=== PATIENT | female | born 1950 | race Caucasian/White ===

== ENCOUNTER → 2018-04-23 11:44 | Outpatient (CLI) | payer MEDICARE, OTHER, SELFPAY ==
--- NOTE | 2018-04-23 | DI.MG.S_ITS ---
BILATERAL DIGITAL SCREENING MAMMOGRAM 3D/2D WITH CAD: 04/23/2018 CLINICAL: Routine screening. Comparison is made to exams dated: 04/09/2017 mammogram, 10/10/2016 mammogram, and 09/23/2016 mammogram - [facility]. The tissue of both breasts is heterogeneously dense. This may lower the sensitivity of mammography. Current study was also evaluated with a Computer Aided Detection (CAD) system. No significant masses, calcifications, or other findings are seen in either breast. There has been no significant interval change. IMPRESSION: NEGATIVE There is no mammographic evidence of malignancy. A 1 year screening mammogram is recommended. This exam was interpreted at Station ID: [id number]. NOTE: For mammograms, a report in lay terms will be sent to the patient. Approximately 15% of breast malignancies will not be visualized mammographically. In the management of a palpable breast mass, a negative mammogram must not discourage biopsy of a clinically suspicious lesion. Electronically Signed By: Catalino trejo/cara:04/23/2018 15:45:14 letter sent: Normal Exam ACR BI-RADS Category 1: Negative 3341F
== END ==
PROVIDERS: Family Provider Specialist; PCP Specialist; Visit Provider Specialist
DX: Z12.31 Encounter for screening mammogram for malignant neoplasm of breast (principal)
CPT/HCPCS: 77063; 77067

== ENCOUNTER → 2018-04-28 12:48 | Outpatient (CLI) | payer MEDICARE, OTHER, SELFPAY ==
--- NOTE | 2018-04-28 | DI.ECHO.S_ITS ---
[place] +---------+ Hospital +---------+ : : [address] : : : : [id number] : : : : Phone: [phone]---------+ Echocardiogram Report + + :Name: YIMI DEMPSEY Study Date: 04/28/2018 Height: 67 in : :[facility] Weight: 113 lb : : Gender: Female BSA: 1.6 m2 : :: 1950 Age: 67 yrs BP: 146/76 mmHg: :Reason For Study: Conduction Disorder, LBBB : :Ordering Physician: Anna : :Roxanne Performed By: Amy Stanton : + + Interpretation Summary The left ventricle is normal in size. Left ventricular systolic function is mild to moderately reduced. The ejection fraction is estimated to be 40-45%. Compared to the prior exam, left ventricular function is moderately improved. There is global hypokinesis with paradoxical septal wall motion consistent with post-operative state/BBB. The right ventricle is normal in size and function. The right ventricular systolic pressure is estimated at 22 mmHg assuming a right atrial pressure of 3 mm Hg. The left atrium is severely dilated. Right atrial size is normal. 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 The prosthetic mitral valve is not well visualized. 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 Cannot assess the presence or severity of regurgitation due to shielding from the prosthesis. There is mild to moderate aortic regurgitation. Compared to the prior echo study, there has been an increase in the severity of aortic regurgitation. There is no other significant valvular heart disease. The aortic root is normal size. Procedure: A two-dimensional transthoracic echocardiogram with color flow and Doppler was performed. The study quality was technically adequate. Comparison is made with the echocardiogram of 08/03/2013. The patient was in normal sinus rhythm during the exam. The patient had a bundle branch block rhythm during the exam. Left Ventricle: The left ventricle is normal in size. There is normal left ventricular wall thickness. Left ventricular systolic function is mild to moderately reduced. The ejection fraction is estimated to be 40-45%. Compared to the prior exam, left ventricular function is moderately improved. Diastolic function could not be accurately assessed due to confounding valvular disease. Right Ventricle: The right ventricle is normal in size and function. Atria: The left atrium is severely dilated. Right atrial size is normal. There is no Doppler evidence for an interatrial shunt. 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 The prosthetic mitral valve is not well visualized. 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 Cannot assess the presence or severity of regurgitation due to shielding from the prosthesis. Aortic Valve: The aortic valve is trileaflet. The aortic valve opens well. There is mild to moderate aortic regurgitation. Compared to the prior echo study, there has been an increase in the severity of aortic regurgitation. Tricuspid Valve: The tricuspid valve is normal in structure and function. There is trace tricuspid regurgitation. The right ventricular systolic pressure is estimated at 22 mmHg assuming a right atrial pressure of 3 mm Hg. Pulmonic Valve: The pulmonic valve is not well seen, but is grossly normal. There is a trace or physiologic amount of pulmonic regurgitation. There is no other significant valvular heart disease. Great Vessels: The aortic root is normal size. The ascending aorta is normal in size. The aortic arch is normal in size. The IVC is of normal diameter and collapses greater than 50% with a sniff. This suggests a low right atrial pressure of 3 mm Hg. Pericardium/ Pleura There is no pericardial effusion. MMode/2D Measurements & Calculations LVIDd: 4.7 cm LVOT diam: 1.9 cm LVIDs: 4.0 cm Ao root diam: 3.3 cm FS: 15.0 % asc Aorta Diam: 3.2 cm IVSd: 0.79 cm Ao Arch Diam (Prox Trans): 2.6 cm LVPWd: 0.88 cm LV dill. diameter/BSA (cm/m^2): 3.0 LV sys. diameter/BSA (cm/m^2): 2.5 LA A2 area: 25.3 cm2 RA long axis: 4.7 cm LA A4 area: 26.5 cm2 RA area: 16.8 cm2 LA length (vol): 5.6 cm RA vol: 50.6 ml LA vol: 100.5 ml RA : 31.9 ml/m2 LA vol index: 63.4 ml/m2 IVC diam: 2.0 cm RVD1 (basal): 3.6 cm TAPSE: 1.6 cm Doppler Measurements & Calculations Ao V2 max: 100.3 cm/sec LVOT Max Alessandro: 81.5 cm/sec Ao V2 mean: 71.6 cm/sec LV V1 max P.7 mmHg Ao max P.0 mmHg LV V1 VTI: 16.7 cm Ao mean P.3 mmHg DONNA(I,D): 2.3 cm2 Ao V2 VTI: 20.7 cm DONNA(V,D): 2.3 cm2 sev ratio: 0.81 DONNA indexed to BSA (cm^2/m^2): 1.4 AI P1/2t: 640.9 msec AI dec slope: 220.1 cm/sec2 MV E max alessandro: 97.4 cm/sec TR max alessandro: 217.5 cm/sec MV A max alessandro: 94.2 cm/sec TR max P.9 mmHg MV E/A: 1.0 PA V2 max: 56.7 cm/sec MV dec time: 0.20 sec PA V2 mean: 38.7 cm/sec MV P1/2t: 57.7 msec PA mean P.66 mmHg PA Accel Time: 0.11 sec MV P1/2t max alessandro: 97.3 cm/sec MVA(P1/2t): 3.8 cm2 Reading Physician:MAGDA
== END ==
PROVIDERS: Family Provider Specialist; PCP Specialist; Visit Provider Internal Medicine
DX: I45.9 Conduction disorder, unspecified (principal); I44.7 Left bundle-branch block, unspecified
CPT/HCPCS: 93306

== ENCOUNTER → 2019-05-31 12:13 | Outpatient (CLI) | payer MEDICARE, OTHER, SELFPAY ==
--- NOTE | 2019-05-31 | DI.MG.S_ITS ---
BILATERAL DIGITAL SCREENING MAMMOGRAM 3D/2D WITH CAD: 05/31/2019 CLINICAL: Routine screening. Comparison is made to exams dated: 04/23/2018 mammogram, 09/23/2016 mammogram, and 09/20/2015 mammogram - [facility]. The tissue of both breasts is heterogeneously dense. This may lower the sensitivity of mammography. Current study was also evaluated with a Computer Aided Detection (CAD) system. No significant masses, calcifications, or other findings are seen in either breast. There has been no significant interval change. IMPRESSION: NEGATIVE There is no mammographic evidence of malignancy. A 1 year screening mammogram is recommended. This exam was interpreted at Station ID: [id number]. NOTE: For mammograms, a report in lay terms will be sent to the patient. Approximately 15% of breast malignancies will not be visualized mammographically. In the management of a palpable breast mass, a negative mammogram must not discourage biopsy of a clinically suspicious lesion. Electronically Signed By: Alexandra mueller/cara:05/31/2019 13:33:18 letter sent: Normal Exam ACR BI-RADS Category 1: Negative 3341F
== END ==
PROVIDERS: PCP Specialist; Visit Provider Specialist
DX: Z12.31 Encounter for screening mammogram for malignant neoplasm of breast (principal)
CPT/HCPCS: 77063; 77067

== ENCOUNTER → 2019-07-18 09:37 | Outpatient (CLI) | payer MEDICARE, OTHER, SELFPAY ==
--- NOTE | 2019-07-18 | DI.MRI.S_ITS ---
PROCEDURE: MR ABDOMEN WO/W CON INDICATIONS: PANCREATITIS. Prior history of laparoscopic assisted Whipple procedure in 2015. History of pancreatic ductal IPMN. TECHNIQUE: Coronal HASTE, axial 2D FLASH in- and [id number]; axial breath-hold T2 FSE with fat saturation from the hepatic dome to the iliac crests. Oblique coronal thin-slice and radial thick slab HASTE through the biliary system. Dynamic axial VIBE during administration of contrast. Post-contrast coronal VIBE or 2D FLASH with fat saturation from the hepatic dome to the iliac crests. Optional diffusion weighted imaging and ADC may be performed. COMPARISON: None. FINDINGS: Image quality: Excellent. Pancreas and biliary system: The pancreatic morphology is consistent with the history of prior Whipple procedure. What appears to be pancreatic parenchyma and postsurgical change is seen at the mid abdomen level, with several small pancreatic parenchymal cysts at the operative bed seen on series 4 image 17. The pancreatic parenchyma tracking towards the splenic hilum is atrophic, but no dominant cystic or solid mass is associated. No adjacent adenopathy is seen. Solid organs: Liver is normal in size and enhancement. There are several scattered simple appearing hepatic cysts. Gallbladder is not visualized and presumably is surgically absent. Spleen is normal in size and enhancement. No adrenal nodules. Kidneys are normal in size and enhancement, without hydronephrosis. Nodes and vessels: No retroperitoneal or mesenteric adenopathy by size criteria. Aorta and inferior vena cava are normal in size. Bowel and peritoneum: Unenhanced bowel loops are normal in caliber throughout. No free fluid. Lung bases: No basal pleural effusions. Heart size is normal. Bones and soft tissues: No ventral hernias. Bone marrow is normal in overall signal. Convex rightward scoliosis is centered at the thoracolumbar junction. IMPRESSION: Expected postsurgical change after Whipple procedure, with no identified cystic or solid mass lesion in the remnant of the pancreatic parenchyma. As noted above several small fluid signal structures are present at the junction of the operative margin, measuring approximately 5-7 mm in diameter and considered postoperative change rather than evidence of residual IPMN. Dictated by: Jassi Small M.D. on 07/19/2019 at 16:50 Approved by: Jassi Small M.D. on 07/19/2019 at 17:22
== END ==
PROVIDERS: PCP Specialist; Visit Provider Surgery
DX: K85.90 Acute pancreatitis without necrosis or infection, unspecified (principal)
CPT/HCPCS: 74183; A9579